=== PATIENT | male | born 1990 | race Caucasian/White ===

== ENCOUNTER 2023-06-14 07:51 | Emergency (ER) | payer OTHER ==
[~2023-06-14] VITALS: Ht 172.7 cm; Wt 77.1 kg
[2023-06-14] MEDS ORDERED: CEFTRIAXONE 1 G VIAL ONE (08:28)
[2023-06-14] MEDS ORDERED: LIDOCAINE HCL 2% 20 ML VIAL ONE (08:29)
[2023-06-14] MEDS ORDERED: CEFTRIAXONE 1 G VIAL IM ONE (08:30)
[2023-06-14] MEDS ORDERED: SULF1TAB48 PO (08:37)
[2023-06-14] MEDS ORDERED: CEPH500C2 PO (08:37)
[2023-06-14 08:45] VITALS: BP 113/81; O2SAT 97
== END 2023-06-14 08:56 | disposition left against medical advice (07) ==
LOC: ER 07:57 → EDBD 07:57 → ER 08:56
DX: L03.115 Cellulitis of right lower limb (principal); L97.519 Non-pressure chronic ulcer of other part of right foot with unspecified severity; F15.10 Other stimulant abuse, uncomplicated; F12.10 Cannabis abuse, uncomplicated; F17.210 Nicotine dependence, cigarettes, uncomplicated; Z59.00 Homelessness unspecified
CPT/HCPCS: 99283; 96372; J0696; A4663; J3490

== ENCOUNTER 2024-07-27 22:21 | Emergency (ER) | payer OTHER ==
[~2024-07-27] VITALS: Ht 172.7 cm; Wt 72.6 kg
[~2024-07-27 22:21] MED LIST: CEPH500C2 PO; SULF1TAB48 PO
[2024-07-27] MEDS ORDERED: CEPH500T PO (23:11)
[2024-07-27] MEDS ORDERED: SULF1TAB48 PO (23:11)
[2024-07-27] MEDS ORDERED: LIDOCAINE HCL 1% 20 ML VIAL ONE (23:16)
[2024-07-27] MEDS ORDERED: SULFAMETH/TRIMETH 800/160 MG TABLET ONE (23:16)
[2024-07-27] MEDS ORDERED: CEFTRIAXONE 1 G VIAL ONE (23:16)
[2024-07-27] MEDS: CEFTRIAXONE 1 G VIAL IM ONE (23:19)
[2024-07-27] MEDS: SULFAMETH/TRIMETH 800/160 MG TABLET PO ONE (23:20)
[2024-07-27 23:24] VITALS: BP 130/77; TEMP 98; O2SAT 100
== END 2024-07-27 23:25 | disposition home or self-care (01) ==
LOC: ER 22:22
DX: L03.116 Cellulitis of left lower limb (principal); F17.210 Nicotine dependence, cigarettes, uncomplicated; Z59.01 Sheltered homelessness
CPT/HCPCS: 99283; 99406; 96372; J0696; J3490; A4606; A4663